=== PATIENT | male | born 1995 | race Caucasian/White ===

== ENCOUNTER 2017-12-09 19:08 | Emergency (ER) | payer SELFPAY ==
[2017-12-09] MEDS ORDERED: diPHENhydraMINE PO* 25 MG PO ONE (20:12)
[2017-12-09] MEDS ORDERED: Metoclopramide TAB* 10 MG PO ONE (20:12)
[2017-12-09] MEDS ORDERED: Ketorolac TAB * 10 MG TAB PO PRN (20:13)
[2017-12-09] MEDS ORDERED: NS 0.9% 1000 ML* 1,000 ML IV ONE (20:13)
[2017-12-09 20:27] LABS: ABS Basophils 0.1 10^3/ul (0-0.2); ABS Eosinophils 0.4 10^3/ul (0-0.6); ABS Lymphocytes 2.2 10^3/ul (1.0-4.8); ABS Monocytes 0.8 10^3/ul (0-0.8); ABS Neutrophils 7.1 10^3/ul (1.5-7.7); ABS Nucleated RBC 0 10^3/ul; Eosinophil % 3.7 % (0-6); Hematocrit 41 % (42-52); Hemoglobin 14.5 g/dl (14.0-18.0); Lymphocyte % 20.7 % (25-47); Mean Corpuscular HGB Conc 36 g/dl (31-36); Mean Corpuscular Hemoglobin 28 pg (27-31); Mean Corpuscular Volume 80 fL (80-94); Nucleated Red Blood Cells % 0.1; Platelet Count 212 10^3/ul (150-450); Red Cell Distribution Width 13 % (10.5-15); White Blood Count 10.6 10^3/ul (3.5-10.8)
[2017-12-09 20:44] LABS: EGFR Non-African American 101.3 (>60)
--- NOTE | 2017-12-09 21:33 | ED ---
Headache - HPI Summary HPI Summary: Patient complains of intermittent headache 2 days. Headache described as bifrontal, intermittent, relieved with Tylenol. Currently rated at 4 out of 10 pain. Patient states history of pseudotumor cerebri in 2006 with no symptoms since. Denies visual field loss, focal deficits, fever, neck pain, cough, sore throat, ear pain, CP, SOB, abdominal pain, N/V/D, change in urine, change in BM. No other medical history. - History Of Current Complaint Chief Complaint: EDHeadache Stated Complaint: HEADACHE Time Seen by Provider: 12/09/17 19:48 Hx Obtained From: Patient Onset/Duration: Gradual Onset Timing: Intermittent, Lasting: Character: Throbbing Location of Headache: Frontal Aggravating Factor: Nothing Allevating Factors: Medication Associated Signs And Symptoms: Negative - Allergies/Home Medications Allergies/Adverse Reactions: Allergies Allergy/AdvReac Type Severity Reaction Status Date / Time No Known Allergies Allergy Verified 12/09/17 19:11 PMH/Surg Hx/FS Hx/Imm Hx Endocrine/Hematology History: Denies: Hx Anticoagulant Therapy Cardiovascular History: Denies: Hx Cardiac Arrest History: Denies: Hx Chronic Renal Failure EENT History: Denies: Hx Deafness Neurological History: Denies: Hx CVA Infectious Disease History: No Infectious Disease History: Denies: Traveled Outside the [place] in Last 30 Days - Social History Alcohol Use: Occasionally Hx Substance Use: No Hx Tobacco Use: No Review of Systems Constitutional: Negative Eyes: Negative ENT: Negative Cardiovascular: Negative Respiratory: Negative Gastrointestinal: Negative Genitourinary: Negative Musculoskeletal: Negative Skin: Negative Positive: Headache Psychological: Normal All Other Systems Reviewed And Are Negative: Yes Physical Exam - Summary Physical Exam Summary: No visual field loss. Neuro exam normal. Triage Information Reviewed: Yes Vital Signs On Initial Exam: Initial Vitals Temp Pulse Resp BP Pulse Ox 98.3 F 87 18 147/70 100 12/09/17 19:11 12/09/17 19:11 12/09/17 19:11 12/09/17 19:11 12/09/17 19:11 Vital Signs Reviewed: Yes Appearance: Positive: Well-Appearing Skin: Positive: Warm Head/Face: Positive: Normal Head/Face Inspection Eyes: Positive: Normal ENT: Positive: Normal ENT inspection Neck: Positive: Supple Cardiovascular: Positive: Normal Abdomen Description: Positive: Nontender Musculoskeletal: Positive: Normal Neurological: Positive: Normal Psychiatric: Positive: Normal AVPU Assessment: Alert - Angel Coma Scale Best Eye Response: 4 - Spontaneous Best Motor Response: 6 - Obeys Commands Best Verbal Response: 5 - Oriented Coma Scale Total: 15 Diagnostics - Vital Signs Vital Signs Temp Pulse Resp BP Pulse Ox 12/09/17 21:00 67 98 12/09/17 20:53 78 133/80 98 12/09/17 20:25 87 98 12/09/17 20:24 78 145/81 98 12/09/17 19:11 98.3 F 87 18 147/70 100 - Laboratory Lab Results: Lab Results 12/09/17 12/09/17 12/09/17 Range/Units 20:13 20:20 20:20 WBC 10.6 (3.5-10.8) 10^3/ul RBC 5.10 (4.00-5.40) 10^6/ul Hgb 14.5 (14.0-18.0) g/dl Hct 41 L (42-52) % MCV 80 (80-94) fL MCH 28 (27-31) pg MCHC 36 (31-36) g/dl RDW 13 (10.5-15) % Plt Count 212 (150-450) 10^3/ul MPV 8.0 (7.4-10.4) um3 Neut % (Auto) 66.7 (38-83) % Lymph % (Auto) 20.7 L (25-47) % Emery % (Auto) 7.8 H (0-7) % Eos % (Auto) 3.7 (0-6) % Baso % (Auto) 1.1 (0-2) % Absolute Neuts (auto) 7.1 (1.5-7.7) 10^3/ul Absolute Lymphs (auto) 2.2 (1.0-4.8) 10^3/ul Absolute Monos (auto) 0.8 (0-0.8) 10^3/ul Absolute Eos (auto) 0.4 (0-0.6) 10^3/ul Absolute Basos (auto) 0.1 (0-0.2) 10^3/ul Absolute Nucleated RBC 0 10^3/ul Nucleated RBC % 0.1 Sodium 139 (135-145) mmol/L Potassium 3.6 (3.5-5.0) mmol/L Chloride 103 (101-111) mmol/L Carbon Dioxide 27 (22-32) mmol/L Anion Gap 9 (2-11) mmol/L BUN 7 (6-24) mg/dL Creatinine 0.94 (0.67-1.17) mg/dL Est GFR ( Amer) 122.6 (>60) Est GFR (Non-Af Amer) 101.3 (>60) BUN/Creatinine Ratio 7.4 L (8-20) Glucose 94 (70-100) mg/dL Lactic Acid 0.6 (0.5-2.0) mmol/L Calcium 9.3 (8.6-10.3) mg/dL Total Bilirubin 0.60 (0.2-1.0) mg/dL AST 15 (13-39) U/L ALT 11 (7-52) U/L Alkaline Phosphatase 70 (34-104) U/L C-Reactive Protein < 1.00 (<8.01) mg/L Total Protein 7.0 (6.4-8.9) g/dL Albumin 4.2 (3.2-5.2) g/dL Globulin 2.8 (2-4) g/dL Albumin/Globulin Ratio 1.5 (1-3) Result Diagrams: 12/09/17 20:20 12/09/17 20:13 Lab Statement: Any lab studies that have been ordered have been reviewed, and results considered in the medical decision making process. Headache Course/Dx - Course Course Of Treatment: Patient complains of intermittent headache 2 days. Headache described as bifrontal, intermittent, relieved with Tylenol. Currently rated at 4 out of 10 pain. Patient states history of pseudotumor cerebri in 2006 with no symptoms since. Denies visual field loss, focal deficits, fever, neck pain, cough, sore throat, ear pain, CP, SOB, abdominal pain, N/V/D, change in urine, change in BM. No other medical history. No visual field loss. Neuro exam normal. Vital signs within normal limits. Labs unremarkable. Headache improved with migraine cocktail. Recommend Tylenol or ibuprofen for headache. Follow-up with neurology if symptoms persist. - Diagnoses Provider Diagnoses: Headache Discharge - Sign-Out/Discharge Documenting (check all that apply): Discharge/Admit/Transfer - Discharge Plan Condition: Stable Disposition: HOME Patient Education Materials: Acute Headache (ED) Referrals: Katie Hoyos MD [Primary Care Provider] - Abdiel Tran MD [Medical Doctor] - Additional Instructions: Follow-up with primary care and neurology Dr. Tran if symptoms persist Return to the ED for any new or worsening symptoms - Billing Disposition and Condition Condition: STABLE Disposition: Home
[2017-12-09 22:30] VITALS: BP 145/84
== END 2017-12-09 22:25 | disposition home or self-care (01) ==
LOC: ED 19:08
DX: R51 Headache (principal); Z86.69 Personal history of other diseases of the nervous system and sense organs
CPT/HCPCS: 36415; 80053; 83605; 85025; 86140; 96360; 99284; A9270-GY

== ENCOUNTER 2018-05-30 23:57 | Emergency (ER) | payer OTHER ==
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
[2018-05-31 01:19] VITALS: BP 122/66
== END 2018-05-31 01:18 | disposition home or self-care (01) ==
LOC: ED 23:57
DX: M25.511 Pain in right shoulder (principal)
CPT/HCPCS: 99282